=== PATIENT | female | born 2000 | race Hispanic/Latino ===

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

== ENCOUNTER 2024-02-03 07:12 | Emergency (ER) | payer BC, MEDICAID ==
[~2024-02-03] VITALS: Ht 149.9 cm; Wt 99.8 kg
--- NOTE | 2024-02-03 07:43 | ERN ---
General Chief Complaint: Headache Stated Complaint: HEADACHE Time Seen by MD: 07:20 History of Present Illness Initial Comments 23-year-old female, otherwise healthy, presents for cough, congestion, body aches, and vomiting. About four days ago patient had fevers body aches vomiting. She has developed a cough. Fevers have subsided but she continues with nausea. She reports decreased oral intake. She has been taking [id number] cough and congestion medicines. No abdominal pain. No diarrhea. Medical history: Denies Surgical history: Cholecystectomy Allergies: Coded Allergies: No Known Drug Allergies (Unverified Allergy, Unknown, 02/03/24) Past Medical History Past Medical History: No Pertinent History Past Surgical History: Cholecystectomy Female( History) LMP: Jan 26, 2024 : 0 ROS Dictation CONSTITUTIONAL: Weakness HEAD/FACE: No signs of trauma. EENT: No eye pain, no blurred vision, no tearing, no double vision, no ear pain, no ear discharge, no nose pain, no nasal congestion, no throat pain, no throat swelling, no mouth pain. RESPIRATORY: Cough CARDIOVASCULAR: No chest pain, no edema, no palpitations, no syncope. GASTROINTESTINAL/ABDOMINAL: Nausea GENITOURINARY: No abnormal discharge, no dysuria, no frequent urination, no hematuria. No complaints of pain in the genitals. MUSCULOSKELETAL: No back pain, no gout, no joint pain, no joint swelling, no muscle pain, no muscle stiffness, no neck pain. INTEGUMENTARY: No change in color, no change in hair/nails, no dryness, no lesion, no lumps, no rash. NEUROLOGICAL/PSYCH: No anxiety, not depressed, no emotional problem, no headache, no numbness, no pre-existing deficit, no history of seizures, no tremors, no weakness. HEMATOLOGIC/LYMPHATIC: Not anemic, no history of blood clots, no apparent bleeding, no bruising, glands not swollen. All Systems Negative, Except as Noted. Physical Exam Physical Exam Dictation VITAL SIGNS: Reviewed. GENERAL APPEARANCE: Alert, oriented x3, no acute distress, obese. HEAD AND FACE: Non-traumatic. EYES: PERRL, pink conjunctivas, eyelid no trauma, anterior chamber clear. EARS: Pinnas intact and no signs of trauma or erythema. Ear canals clear and no discharge. TMs no erythema. NOSE: No discharge, no bleeding. OROPHARYNX: Mouth normal, teeth no caries, tongue pink. Pharynx clear, no erythema. Tonsils no exudates, no abscesses noted. Mucous membrane moist. NECK: Supple, non-tender, no thyromegaly, no masses, no JVD, no bruits. BREAST: Deferred. CHEST: No tenderness, no crepitus, no paradoxical movement, no retractions. LUNGS: Clear, well-ventilated, symmetric, no rales, no wheezing, no rhonchi, no stridor, good breath sounds bilaterally. HEART: Regular rate, regular rhythm, no murmur, no gallops. VASCULAR: No peripheral edema. ABDOMEN: Soft, positive bowel sounds, nondistended, no guarding, nontender, no rebound, no masses no hepatomegaly, no splenomegaly, no Singh's sign, no hernias. RECTAL: Deferred. GENITAL: Deferred. NEUROLOGICAL: Normal speech, gross motor function intact, gross sensory function intact. MUSCULOSKELETAL: Neck nontender, full range of motion, back nontender, full range of motion. EXTREMITIES: Nontender, full range of motion. SKIN: Color pink, dry, no turgor, no rash, no lacerations, no abrasions, no contusions. LYMPHATICS: Deferred. Results Laboratory and Microbiology Lab and Micro Result Laboratory Tests Test 02/03/24 07:20 Influenza Type A Antigen Positive For Type A Influenza Type B Antigen Negative For Type B SARS-CoV-2, RNA, NAAT NEGATIVE SARS CoV-2 MDM CC: Flu-like symptoms for four days Historian: Patient Comorbidities: Obesity Limitations by social determinants of health: None Vital signs: Pulse 109 otherwise unremarkable Differential diagnosis: Flu-like illness, viral URI, other CXR: Per my independent interpretation no cardiomegaly no pleural effusions or focal infiltrates. Flu positive. Consistent with symptoms. She received p.o. Zofran here in the ER. She was able to drink liquids. Low suspicion for any life threats. No respiratory distress. Able to keep liquids down. We will DC with Tamiflu prescription and Zofran prescription. Patient agrees with the plan. ED Course Orders Procedure Category Date Status Time Influenza Type A & B, LAB 02/03/24 Complete Rapid 07:19 Covid Rna Naat LAB 02/03/24 Complete 07:19 Chest 1vw RAD 02/03/24 Taken 07:20 Ondansetron Odt 4mg PHA 02/03/24 Complete Tab (Zofran 4mg Odt) 08:00 Current Medications Medications (Trade) Dose Ordered Sig/Adolph Route PRN Reason Start Time Stop Time Status Last Admin Dose Admin Ondansetron HCl (zoFRAN 4MG ODT) 4 mg ONCE ONCE SL 02/03/24 08:00 02/03/24 08:01 DC 02/03/24 07:53 Vital Signs Date Time Temp Pulse Resp B/P (MAP) Pulse Ox O2 Delivery O2 Flow Rate FiO2 02/03/24 07:13 97.7 109 16 142/79 96 Room Air 0 DX & DISP Disposition: Discharge Departure Impression: Primary Impression: Influenza A Condition: Stable Scripts Ondansetron (Ondansetron Odt) 4 Mg Tab.rapdis 1 TAB PO Q6HPRN PRN for nausea/vomiting for 3 Days, #9 TAB 0 Refills Prov: DEYSI RHOADES DO 02/03/24 Oseltamivir Phosphate (Tamiflu) 75 Mg Cap 1 CAP PO BID for 5 Days, #10 CAP 0 Refills Prov: DEYSI RHOADES DO 02/03/24 Additional Instructions: You tested positive for influenza a, or the flu. Your chest x-ray is clear. As we discussed, I have prescribed Tamiflu, which is an antiviral medication for the flu. Take as prescribed. If you have any side effects from this me dication, you do not need to complete the entire course. As we discussed, this medication is less effective later in the course of the disease. Continue with Tylenol and ibuprofen for fevers and body aches. I have prescribed ondansetron dissolvable tabs. If you take this 3 times a day will prevent significant vomiting. Be sure to drink plenty of liquids. Gatorade has a good choice. Start with the BRAT diet (bananas, rice, applesauce, toast). Advance your diet slowly as tolerated. Please return to the emergency department if you have any concerns. Otherwise you can follow up with her primary doctor in 48 hours for re-evaluation. Referrals: SURENDRA GEORGE MD (PCP) DEYSI RHOADES DO Feb 03, 2024 07:43
[2024-02-03] MEDS: ondanSETRON ODT 4MG TAB SL ONE (07:53)
[2024-02-03 07:56] LABS: INFLUENZA TYPE B Negative For Type B (NEGATIVE); SARS-CoV-2, RNA, NAAT NEGATIVE SARS CoV-2 (NEGATIVE)
[2024-02-03 08:03] LABS: INFLUENZA TYPE A Positive For Type A (NEGATIVE)
[2024-02-03] MEDS ORDERED: OSEL75 PO (08:10)
[2024-02-03] MEDS ORDERED: ONDA-243 PO (08:10)
[2024-02-03 08:38] VITALS: BP 130/75; PULSE 98; RESP 16; TEMP 97.8; O2SAT 97
--- NOTE | 2024-02-03 08:42 | HMCIMG ---
CHEST 1VW HISTORY: Cough COMPARISON: 02/06/2015 FINDINGS: A frontal projection of the chest was obtained. No acute pulmonary infiltrates is seen. The heart is normal in size. Prominent interstitial markings are seen. IMPRESSION: 1. No acute pulmonary infiltrate is seen.
== END 2024-02-03 08:47 | disposition home or self-care (01) ==
LOC: EDH 07:12
DX: J10.1 Influenza due to other identified influenza virus with other respiratory manifestations (principal); E66.9 Obesity, unspecified; Z90.49 Acquired absence of other specified parts of digestive tract; Z20.822 Contact with and (suspected) exposure to COVID-19
CPT/HCPCS: 71045; 87635; 87804; 99283

== ENCOUNTER 2024-10-16 14:21 | Emergency (ER) | payer BC, MEDICAID ==
[~2024-10-16] VITALS: Ht 149.9 cm; Wt 115.7 kg
[~2024-10-16 14:21] MED LIST: ONDA-243 PO; OSEL75 PO
--- NOTE | 2024-10-16 14:33 | ERN ---
ED Note History of Present Illness Stated Complaint: 13 WKS PREG, ABD PAIN Chief Complaint: Abdominal Pain in Time Seen by MD: 14:21 Dictation: PATIENT IS A 24-YEAR-OLD FEMALE COMING IN TODAY WITH PELVIC PAIN CRAMPING ONSET FOR THE LAST SEVERAL DAYS. SHE DENIES VAGINAL BLEEDING. STATES SHE IS APPROXIMATELY 13 WEEKS , . PATIENT STATES HER OUTER DIAMETER GRINDER DOCTOR WE WILL BE DR. COSBY SHE HAS NOT HAD AN APPOINTMENT WITH HIM YET. Allergies: Coded Allergies: No Known Drug Allergies (Unverified Allergy, Unknown, 02/03/24) Home Meds Active Scripts Ondansetron (Ondansetron Odt) 4 Mg Tab.rapdis, 1 TAB PO Q6HPRN PRN for nausea/vomiting for 3 Days, #9 TAB 0 Refills Prov:DEYSI RHOADES DO 02/03/24 Oseltamivir Phosphate (Tamiflu) 75 Mg Cap, 1 CAP PO BID for 5 Days, #10 CAP 0 Refills Prov:DEYSI RHOADES DO 02/03/24 Past Medical History Past Medical History: No Pertinent History Surgical History: Cholecystectomy : 1 Para: 0 Aborts: 0 RN Note Reviewed/Agreed w/PFSH: Yes Review of System Dictation CONSTITUTIONAL: NEGATIVE EXCEPT FOR HPI HEAD/FACE: NEGATIVE EXCEPT FOR HPI EENT: NEGATIVE EXCEPT FOR HPI RESPIRATORY: NEGATIVE EXCEPT FOR HPI GASTROINTESTINAL/ABDOMINAL: NEGATIVE EXCEPT FOR HPI PELVIC CRAMPING GENITOURINARY: NEGATIVE EXCEPT FOR HPI MUSCULOSKELETAL: NEGATIVE EXCEPT FOR HPI INTEGUMENTARY: NEGATIVE EXCEPT FOR HPI NEUROLOGICAL/PSYCH: NEGATIVE EXCEPT FOR HPI HEMATOLOGIC/LYMPHATIC: NEGATIVE EXCEPT FOR HPI ALL SYSTEMS NEGATIVE, EXCEPT NOTED ABOVE. 13 POINT REVIEW OF SYSTEMS ASSESSED AND ALL NEGATIVE EXCEPT FOR ABOVE. Initial Vital Sign VS Vital Signs Date Time Temp Pulse Resp B/P (MAP) Pulse Ox O2 Delivery O2 Flow Rate FiO2 10/16/24 14:30 98.8 87 20 120/71 100 Room Air 0 10/16/24 14:33 21 Physical Exam Dictation VITAL SIGNS REVIEWED GENERAL APPEARANCE: ALERT, ORIENTED X 3, NO ACUTE DISTRESS, WELL DEVELOPED, NOURISHED. HEAD AND FACE: NON-TRAUMATIC. EYES: PERRL, PINK CONJUNCTIVAS, EYELID NO TRAUMA, ANTERIOR CHAMBER WITH ARCUS SENILIS. EARS: PINNAS INTACT AND NO SIGNS OF TRAUMA OR ERYTHEMA EAR CANALS CLEAR AND NO DISCHARGE TM NO ERYTHEMA NOSE: NO DISCHARGE, NO BLEEDING. OROPHARYNX: MOUTH NORMAL, TONGUE PINK, PHARYNX CLEAR,NO ERYTHEMA, TONSILS NO EXUDATES, NO ABSCESSES NOTED, MUCOUS MEMBRANE MOIST NECK: SUPPLE, NON-TENDER, NO THYROMEGALY, NO MASSES, NO JVD, NO BRUITS BREAST:DEFERRED CHEST:NO TENDERNESS, NO CREPITUS, NO PARADOXICAL MOVEMENT, NO RETRACTIONS LUNGS:CLEAR, WELL-VENTILATED, SYMMETRIC, NO RALES, NO WHEEZING, NO RHONCHI, NO STRIDOR, GOOD BREATH SOUNDS BILATERALLY HEART: REGULAR RATE, REGULAR RHYTHM, NO MURMUR, NO GALLOPS VASCULAR: NO PERIPHERAL EDEMA, ABDOMEN: SOFT, POSITIVE BOWEL SOUNDS, NONDISTENDED, NO GUARDING, NONTENDER, NO REBOUND, NO MASSES NO HEPATOMEGALY, NO SPLENOMEGALY, NO RICHARDS'S SIGN, NO HERNIAS. RECTAL: DEFERRED GENITAL: DEFERRED NEUROLOGICAL: NORMAL SPEECH, MOTOR FUNCTION INTACT, SENSORY FUNCTION INTACT MUSCULOSKELETAL: NECK NONTENDER, FULL RANGE OF MOTION, BACK NONTENDER, FULL RANGE OF MOTION, EXTREMITIES: NONTENDER, FULL RANGE OF MOTION SKIN: COLOR PINK, DRY, NO TURGOR, NO RASH, NO LACERATIONS, NO ABRASIONS, NO CONTUSIONS. LYMPHATIC: DEFERRED Results (Laboratory/Radiology) Laboratory/Radiology Laboratory Tests Test 10/16/24 15:50 White Blood Count 8.6 K/uL (4.8-10.8) Red Blood Count 4.09 MIL/uL (4.00-5.50) Hemoglobin 12.5 g/dL (12.0-16.0) Hematocrit 36.0 % (36-48) Mean Corpuscular Volume 88.0 fL (79-99) Mean Corpuscular Hemoglobin 30.6 pg (27.0-33.0) Mean Corpuscular Hemoglobin Concent 34.7 g/dL (32.0-36.0) Red Cell Distribution Width 13.2 % (11.0-15.5) Platelet Count 242 K/uL (130-400) Mean Platelet Volume 11.7 fL (7.5-10.5) H Immature Granulocyte % (Auto) 0.3 % (0-1) Neutrophils (%) (Auto) 62.6 % (40.0-77.0) Lymphocytes (%) (Auto) 30.3 % (21.0-51.0) Monocytes (%) (Auto) 6.0 % (3.0-13.0) Eosinophils (%) (Auto) 0.6 % (0.0-8.0) Basophils (%) (Auto) 0.2 % (0.0-5.0) Neutrophils # (Auto) 5.4 K/uL (1.8-7.7) Lymphocytes # (Auto) 2.6 K/uL (1.0-4.8) Monocytes # (Auto) 0.5 K/uL (0.1-1.0) Eosinophils # (Auto) 0.05 K/uL (0.00-0.70) Basophils # (Auto) 0.02 K/uL (0.00-0.20) Absolute Immature Granulocyte (auto 0.03 K/uL (0-1) Nucleated Red Blood Cells 0.0 % (0.0-0.19) Sodium Level 136 mmol/L (136-145) Potassium Level 4.0 mmol/L (3.5-5.1) Chloride Level 103 mmol/L (101-111) Carbon Dioxide Level 27 mmol/L (21-32) Blood Urea Nitrogen 5 mg/dL (7-18) L Creatinine 0.4 mg/dL (0.5-1.0) L Glomerular Filtration Rate Calc 143 mL/min (>90) Random Glucose 82 mg/dL (70-105) Total Calcium 8.9 mg/dL (8.5-10.1) Human Chorionic Gonadotropin, Quant 18186 mIU/mL (0-5) H ULTRASOUND DEMONSTRATES VIABLE IUP 13W0D HEART TONES 150 NO BLEEDING Labs Reviewed?: Yes ED Course ED Course Orders Procedure Category Date Status Time Cbc With Differential LAB 10/16/24 Complete 14:29 Hcg,Quantitative LAB 10/16/24 Complete 14:29 Us Ob <14 Weeks US 10/16/24 Taken 14:29 Type And Screen BBK 10/16/24 Complete 14:29 Basic Metabolic Panel LAB 10/16/24 Complete 14:29 Vital Signs Date Time Temp Pulse Resp B/P (MAP) Pulse Ox O2 Delivery O2 Flow Rate FiO2 10/16/24 17:15 98.8 80 20 115/72 100 Room Air* 0 21 10/16/24 15:57 98.8 85 20 118/73 100 Room Air* 0 21 10/16/24 14:33 98.8 87 20 120/71 100 Room Air* 0 21 10/16/24 14:30 98.8 87 20 120/71 100 Room Air 0 1705/PATIENT DISCHARGED HOME WITH IUP/3 WEEKS 0 DAYS TOLD TO CONTINUE VITAMINS, TYLENOL ONLY FOR PAIN AND KEEP HER APPOINTMENT WITH HER OUTER DIAMETER GRINDER DOCTOR. Medical Decision Making MDM MEDICAL DISCHARGE MAKING BASED ON BASIC LABS FOR INCLUDING ULTRASOUND. PATIENT 13 WEEKS 0 DAYS VIABLE IUP LABS UNREMARKABLE OTHER THAN DEHYDRATION PATIENT TOLD TO CONTINUE HER MEDICATIONS AND TYLENOL ONLY FOR PAIN KEEP HER APPOINTMENT WITH HER OUTER DIAMETER GRINDER DOCTOR DX & DISP Disposition: Discharge Departure Impression: Primary Impression: Pelvic pain during Additional Impression: Dehydration Condition: Stable Additional Instructions: FOLLOW-UP WITH PRIMARY CARE PROVIDER IN 1 TO 2 DAYS. TAKE MEDICATIONS DIRECTED HERE IN THE EMERGENCY ROOM. OKAY TO CONTINUE HOME MEDICATIONS UNLESS OTHERWISE DISCUSSED DURING YOUR VISIT IN THE EMERGENCY ROOM TODAY. RETURN TO YOUR NEAREST EMERGENCY ROOM IF SYMPTOMS WORSEN OR IF THERE IS NO IMPROVEMENT. CALL 911 IF YOU NEED IMMEDIATE ASSISTANCE. TAKE TYLENOL [id number] NEEDED AND IF NO CONTRAINDICATIONS ARE PRESENT. INCREASE ORAL HYDRATION. A WOUND CULTURE OR URINE CULTURE WAS ORDERED HERE IN THE EMERGENCY ROOM DEPARTMENT PLEASE FOLLOW-UP WITH PRIMARY CARE PROVIDER AND ADVISE THEM TO GET REPEAT PORTS FROM OUR FACILITY. IF YOU HAD ANY JUAN PABLO WRAP/SPLINTS THAT WERE APPLIED HERE, PLEASE DO NOT REMOVE THEM UNTIL YOU SEE YOUR PRIMARY CARE OR SPECIALTY. CONTINUE VITAMINS. TYLENOL ONLY FOR PAIN AND KEEP YOUR APPOINTMENT WITH YOUR OUTER DIAMETER GRINDER DOCTOR. Referrals: GUERDA ESQUIVEL MD (PCP) Time of Disposition: 17:09 I have reviewed the case, and I agree with, Diagnosis and Plan KETTY RIVERA NP Oct 16, 2024 14:33 DEYSI RHOADES DO Oct 16, 2024 17:56
[2024-10-16 16:04] LABS: IMMATURE GRANULOCYTE ABSOLUTE 0.03 K/uL (0-1); NUCLEATED RED BLOOD CELLS 0.0 % (0.0-0.19); PLATELET COUNT (AUTO) 242 K/uL (130-400); RED BLOOD CELL COUNT(AUTO) 4.09 MIL/uL (4.00-5.50); RED CELL DISTRIBUTION WIDTH 13.2 % (11.0-15.5); WHITE BLOOD COUNT (AUTO) 8.6 K/uL (4.8-10.8)
[2024-10-16 16:15] LABS: CREATININE 0.4 mg/dL (0.5-1.0); GLOMERULAR FILTR. RATE CALC 143.0 mL/min (>90); GLUCOSE,RANDOM 82.0 mg/dL (70-105); SODIUM SERUM 136.0 mmol/L (136-145); UREA NITROGEN, BLOOD 5.0 mg/dL (7-18)
[2024-10-16 16:42] LABS: HCG,QUANTITATIVE 34796.0 mIU/mL (0-5)
[2024-10-16 17:15] VITALS: BP 115/72; PULSE 80; RESP 20; TEMP 98.8; O2SAT 100
--- NOTE | 2024-10-17 13:01 | HMCIMG ---
TRANSABDOMINAL AND TRANSVAGINAL PELVIC ULTRASOUND; DATED 10/17/2024 11:55 AM MDT. CLINICAL INDICATION : PELVIC CRAMPING,13 WEEKS NO CARE COMPARISON: No recent ultrasound prior ultrasound was done 08/17/2017 FINDINGS: Single live intrauterine gestation in the fundal endometrium. No perigestational sac hematoma identified. Mean gestational sac diameter is 6.2 cm , corresponds to out of range. CRL measures 6.8 cm , corresponds to 13 weeks 0 days. Estimated gestational age is 13 weeks 0 day and LAUREN is 04/23/2025. cardiac activity and heart rate is 150 beats per minute. The uterus is anteverted with normal shape. It measures 11.7 x 7.0 x 9.0 cm in its maximum length, anteroposterior and transverse dimensions. The myometrium is homogeneous and there is no evidence of focal or diffuse lesions. The cervix is closed. Both ovaries appear normal with normal flow on color and Spectral Doppler. The right ovary measures 2.7 x 1.4 x 3.9 cm and the left ovary is not visualized. There is a right ovarian cyst measuring 2.2 x 1.6 x 1.3. No adnexal masses. No free fluid or collections. Urinary bladder appears normal. IMPRESSION: 1. Single live intrauterine gestation 13 weeks 0 day and LAUREN is 04/23/2025 . 2. Cervix is closed. I have reviewed the images and agree with the findings and conclusions reported above.
== END 2024-10-16 17:17 | disposition home or self-care (01) ==
LOC: EDH 14:21
DX: O26.891 Other specified pregnancy related conditions, first trimester (principal); R10.2 Pelvic and perineal pain; O99.281 Endocrine, nutritional and metabolic diseases complicating pregnancy, first trimester; E86.0 Dehydration; Z90.49 Acquired absence of other specified parts of digestive tract; Z3A.13 13 weeks gestation of pregnancy
CPT/HCPCS: 36415; 76801; 80048; 84702; 85025; 86850; 86900; 86901; 99284

== ENCOUNTER 2024-11-15 22:23 | Emergency (ER) | payer BC, MEDICAID ==
[~2024-11-15] VITALS: Ht 149.9 cm; Wt 117.9 kg
--- NOTE | 2024-11-15 22:27 | NUR ---
UA CUP PROVIDED
[2024-11-15 22:34] VITALS: BP 120/72; PULSE 94; RESP 16; TEMP 98; O2SAT 99
[2024-11-15 22:42] LABS: APPEARANCE,URINE TURBID (CLEAR); GLUCOSE, URINE (UA) NEGATIVE (NEGATIVE); LEUKOCYTE ESTERASE ,URINE 75 Leu/uL (NEGATIVE); NITRATE,URINE NEGATIVE (NEGATIVE); OCCULT BLOOD,URINE NEGATIVE (NEGATIVE)
[2024-11-15 22:45] LABS: ADD UA MICROSCOPIC YES
--- NOTE | 2024-11-15 22:47 | ERN ---
ED Note History of Present Illness Stated Complaint: FALL, OB, ABD CRAMPING Chief Complaint: OB<20 weeks gest. Time Seen by MD: 22:33 Time Seen by Midlevel: 22:33 Dictation: The patient is a 24-year-old female with a history of gastritis, cholecystectomy who reports being 17 weeks G1 who presents to the emergency department with generalized abdominal cramping onset 40 minutes ago after she had an accidental trip and fall. Patient reports she landed on her knees and did not injured her stomach. Denies any other injuries. Patient denies any vaginal bleeding or discharge. Allergies: Coded Allergies: No Known Drug Allergies (Unverified Allergy, Unknown, 02/03/24) Home Meds Active Scripts Cephalexin Monohydrate (Keflex) 500 Mg Cap, 500 MG PO QID for 5 Days, #20 CAP Prov:MARLIN VERA CARDIOTHORACIC ICU RN 11/15/24 Ondansetron (Ondansetron Odt) 4 Mg Tab.rapdis, 1 TAB PO Q6HPRN PRN for nausea/vomiting for 3 Days, #9 TAB 0 Refills Prov:DEYSI RHOADES DO 02/03/24 Oseltamivir Phosphate (Tamiflu) 75 Mg Cap, 1 CAP PO BID for 5 Days, #10 CAP 0 Refills Prov:DEYSI RHOADES DO 02/03/24 Past Medical History Past Medical History: Other Additional Past Medical Hx: gastritis Surgical History: Cholecystectomy : 1 Para: 0 Aborts: 0 RN Note Reviewed/Agreed w/PFSH: Yes Review of System Dictation Constitutional: Negative for fever,chills, and weight loss Eyes: Negative for injury, pain,redness, and discharge ENT: Negative for injury,pain or swelling Cardiovascular: Negative for chest pain, palpitations, and edema Respiratory: Negative for shortness of breath, cough, and wheezing, Abdomen/GI: Negative for nausea, vomiting, diarrhea, and constipation positive for abdominal pain Back: Negative for injury and pain : Negative for injury, bleeding and discharge MS/Extremity: Negative for injury and deformity Skin: Negative for rash, and discoloration Neuro: Negative for headache, weakness, numbness, tingling, and seizure Psych: Negative for suicide ideation, homicidal ideation, and hallucinations Initial Vital Sign VS Vital Signs Date Time Temp Pulse Resp B/P (MAP) Pulse Ox O2 Delivery O2 Flow Rate FiO2 11/15/24 22:24 98.1 96 20 118/73 99 Room Air 11/15/24 22:34 0 21 Physical Exam Dictation Vital Signs reviewed General Appearance: Alert, oriented x 3, no acute distress, well developed, nour ished. Head and Face: non-traumatic. Eyes: PERRL, pink conjunctivas, eyelid no trauma, anterior chamber with arcus senilis. Ears: Pinnas intact and no signs of trauma or erythema ear canals clear and no discharge TM no erythema Nose: No discharge, no bleeding. Oropharynx: Mouth normal, tongue pink. pharynx clear,no erythema, tonsils no exudates, no abscesses noted, mucous memb blanka moist Neck: Supple, non-tender, no thyromegaly, no masses, no JVD, no bruits Breast:Deferred Chest:No tenderness, no crepitus, no paradoxical movement, no retractions Lungs:Clear, well-ventilated, symmetric, no rales, no wheezing, no rhonchi, no s tridor, good breath sounds bilaterally Heart: Regular rate, regular rhythm, no murmur, no gallops Vascular: no peripheral edema, Abdomen: Soft, positive bowel sounds, nondistended, no guarding, nontender, no rebound, no masses no hepatomegaly, no splenomegaly, no Singh's sign, no hernias. Rectal: Deferred Genital: Deferred Neurological: Normal speech, motor function intact, sensory function intact Musculoskeletal: Neck nontender, full range of motion, back nontender, full range of motion, Extremities: nontender, full range of motion no contusions noted to knee, ambulatory Skin: Color pink, dry, no turgor, no rash, no lacerations, no abrasions, no contusions. Lymphatic: Deferred Results (Laboratory/Radiology) Laboratory/Radiology Laboratory Tests Test 11/15/24 22:31 11/15/24 22:39 Urine Color YELLOW (YELLOW) Urine Appearance TURBID (CLEAR) Urine pH 8.0 (5.0-8.0) Urine Specific [place] 1.020 (1.001-1.031) Urine Protein NEGATIVE mg/dL (NEGATIVE) Urine Glucose (UA) NEGATIVE mg/dL (NEGATIVE) Urine Ketones NEGATIVE mg/dL (NEGATIVE) Urine Occult Blood NEGATIVE (NEGATIVE) Urine Nitrate NEGATIVE (NEGATIVE) Urine Bilirubin NEGATIVE mg/dL (NEGATIVE) Urine Urobilinogen 2.0 mg/dL (0.2-1.0) H Urine Leukocyte Esterase 75 Luci/uL (NEGATIVE) H Urine RBC 2-5 /HPF (0-1) H Urine WBC 2-5 /HPF (0-1) H Urine Squamous Epithelial Cells FEW /HPF (0-2) Urine Amorphous Crystals (Auto) RARE /LPF (None Seen) Urine Bacteria RARE /HPF (None Seen) Human Chorionic Gonadotropin, Quant 8095 mIU/mL (0-5) H REASON: FALL TO KNEES, GENERALIZED ABD CRAPING. DENIES VAGINAL BLEEDING ORDERING PHYSICIAN: LUCY HI MD PROCEDURE: OB >14 - US OB >14 WEEKS EXAM: US Obstetrical, Complete >14 weeks. CLINICAL HISTORY: Fall to knees, generalized abdominal cramping. Denies vaginal bleeding. TECHNIQUE: Transabdominal imaging of the maternal pelvis and a > 14-week gestation with image documentation. COMPARISON: None provided. FINDINGS: FETUS: Single living intrauterine gestation. POSITION: Breech, longitudinal lie. HEART RATE: 162 bpm. BIOMETRICS: BPD: 3.94 cm - 18 w 0 d HC: 14.78 cm - 17 w 6 d AC: 11.91 cm - 17 w 5 d FL: 2.69 cm - 18 w 1 d Composite GA (by US): 17 w 6 d Estimated Weight (EFW): 213 g ??? 31 g HC/AC Ratio: 1.24 (within normal range) ANATOMIC SURVEY: Visualized anatomy (lateral ventricles, choroid plexus, cisterna magna, stomach, kidneys, urinary bladder, spine, cord insertion, 3-vessel cord, 4-chamber heart) is unremarkable. PLACENTA: Anterior. No previa or abruption. Placental tip to cervix: 2.0 cm. AMNIOTIC FLUID: VANESSA: 14.72 cm - within normal limits. CERVIX: Closed. Unremarkable. IMPRESSION: Single viable intrauterine , 17 w 6 d by ultrasound. Growth and anatomy are appropriate for gestational age. No acute abnormality. Anterior placenta, the lower margin of the placenta is 2 cm from the internal os. Labs Reviewed?: Yes ED Course ED Course Orders Procedure Category Date Status Time Urinalysis Profile LAB 11/15/24 Complete 22:27 Hcg,Quantitative LAB 11/15/24 Complete 22:27 Us Ob >14 Weeks US 11/15/24 Resulted 22:29 Acetaminophen 325 Tab PHA 8/22/25 Complete (Tylenol 325mg Tab 23:00 Culture Urine LUZ ELENA 11/15/24 In Process 22:45 Ceftriaxone 1g Vial PHA 11/15/24 Complete (Rocephine 1g Inj) 23:30 Current Medications Medications (Trade) Dose Ordered Sig/Adolph Route PRN Reason Start Time Stop Time Status Last Admin Dose Admin Acetaminophen (TYLenol 325MG TAB) 650 mg ONCE ONCE PO 11/15/24 23:00 11/15/24 23:01 DC 11/15/24 23:29 Ceftriaxone Sodium (ROCEphine 1G INJ) 1 gm ONCE ONCE IM 11/15/24 23:30 11/15/24 23:31 DC 11/15/24 23:29 Vital Signs Date Time Temp Pulse Resp B/P (MAP) Pulse Ox O2 Delivery O2 Flow Rate FiO2 11/15/24 22:34 98.1 94 16 120/72 99 Room Air* 0 21 11/15/24 22:24 98.1 96 20 118/73 99 Room Air Medical Decision Making MDM The patient is a 24-year-old female with a history of gastritis, cholecystectomy who reports being 17 weeks G1 who presents to the emergency department with generalized abdominal cramping onset 40 minutes ago after she had an accidental trip and fall. Patient reports she landed on her knees and did not injured her stomach. Denies any other injuries. Patient denies any vaginal bleeding or discharge. Urinalysis positive for leukocyte esterase. Patient will be treated for UTI. Ultrasound revealed an intrauterine of 17 weeks with heart rate of 160. Patient with no vaginal bleeding or discharge. On physical exam patient is in no acute distress, ambulatory, nontoxic appearance. No contusions or open wounds to knee, no deformities, neurovascularly intact. Patient will be discharged to follow up with the OBGYN. Differential diagnosis: Threatened , UTI, abdominal trauma Need for hospitalization: Patient does not meet criteria for hospitalization. There are no social concerns with this patient. DX & DISP Disposition: Discharge Departure Impression: Primary Impression: 17 weeks gestation of Additional Impression: UTI (urinary tract infection) Condition: Stable Scripts Cephalexin Monohydrate (Keflex) 500 Mg Cap 500 MG PO QID for 5 Days, #20 CAP Prov: MARLIN VERA CARDIOTHORACIC ICU RN 11/15/24 Additional Instructions: Please follow up with your OBGYN as soon as possible. Take your medications as prescribed. Your urinalysis showed you have a urinary tract infection which she will be giving antibiotics. If anything worsens please return to ER. FOLLOW-UP WITH PRIMARY CARE PROVIDER IN 1 TO 2 DAYS. TAKE MEDICATIONS DIRECTED HERE IN THE EMERGENCY ROOM. OKAY TO CONTINUE HOME MEDICATIONS UNLESS OTHERWISE DISCUSSED DURING YOUR VISIT IN THE EMERGENCY ROOM TODAY. RETURN TO YOUR NEAREST EMERGENCY ROOM IF SYMPTOMS WORSEN OR IF THERE IS NO IMPROVEMENT. CALL 911 IF YOU NEED IMMEDIATE ASSISTANCE. TAKE TYLENOL [id number] NEEDED AND IF NO CONTRAINDICATIONS ARE PRESENT. INCREASE ORAL HYDRATION. A WOUND CULTURE OR URINE CULTURE WAS ORDERED HERE IN THE EMERGENCY ROOM DEPARTMENT PLEASE FOLLOW-UP WITH PRIMARY CARE PROVIDER AND ADVISE THEM TO GET REPEAT PORTS FROM OUR FACILITY. IF YOU HAD ANY JUAN PABLO WRAP/SPLINTS THAT WERE APPLIED HERE, PLEASE DO NOT REMOVE THEM UNTIL YOU SEE YOUR PRIMARY CARE OR SPECIALTY. Referrals: GUERDA ESQUIVEL MD (PCP) Time of Disposition: 23:50 I have reviewed the case, and I agree with, Diagnosis and Plan MARLIN VERA [facility] Nov 15, 2024 22:47
[2024-11-15 22:48] LABS: SQUAMOUS EPITHELIAL CELL,UR FEW /HPF (0-2)
--- NOTE | 2024-11-15 23:10 | NUR ---
fht 160 per us
[2024-11-15] MEDS ORDERED: CEPH500B PO (23:51)
--- NOTE | 2024-11-16 00:23 | HMCIMG ---
EXAM: US Obstetrical, Complete >14 weeks. CLINICAL HISTORY: Fall to knees, generalized abdominal cramping. Denies vaginal bleeding. TECHNIQUE: Transabdominal imaging of the maternal pelvis and a > 14-week gestation with image documentation. COMPARISON: None provided. FINDINGS: FETUS: Single living intrauterine gestation. POSITION: Breech, longitudinal lie. HEART RATE: 162 bpm. BIOMETRICS: BPD: 3.94 cm - 18 w 0 d HC: 14.78 cm - 17 w 6 d AC: 11.91 cm - 17 w 5 d FL: 2.69 cm - 18 w 1 d Composite GA (by US): 17 w 6 d Estimated Weight (EFW): 213 g ??? 31 g HC/AC Ratio: 1.24 (within normal range) ANATOMIC SURVEY: Visualized anatomy (lateral ventricles, choroid plexus, cisterna magna, stomach, kidneys, urinary bladder, spine, cord insertion, 3-vessel cord, 4-chamber heart) is unremarkable. PLACENTA: Anterior. No previa or abruption. Placental tip to cervix: 2.0 cm. AMNIOTIC FLUID: VANESSA: 14.72 cm - within normal limits. CERVIX: Closed. Unremarkable. IMPRESSION: Single viable intrauterine , 17 w 6 d by ultrasound. Growth and anatomy are appropriate for gestational age. No acute abnormality. Anterior placenta, the lower margin of the placenta is 2 cm from the internal os. /[place]
== END 2024-11-16 00:02 | disposition home or self-care (01) ==
LOC: EDH 22:23
DX: O23.42 Unspecified infection of urinary tract in pregnancy, second trimester (principal); N39.0 Urinary tract infection, site not specified; Z90.49 Acquired absence of other specified parts of digestive tract; Z3A.17 17 weeks gestation of pregnancy
CPT/HCPCS: 99284; 76805; 84702; 87086; 81001; 36415; 96372; J0696

== ENCOUNTER 2025-02-18 09:41 | Emergency (ER) | payer BC, MEDICAID ==
[~2025-02-18] VITALS: Ht 149.9 cm; Wt 122.0 kg
[~2025-02-18 09:41] MED LIST changes: +CEPH500B PO
--- NOTE | 2025-02-18 09:58 | NUR ---
PT JUST NOW BEING PLACED IN ED 9
[2025-02-18 10:13] LABS: NUCLEATED RED BLOOD CELLS 0.0 % (0.0-0.19); PLATELET COUNT (AUTO) 275.0 K/uL (130-400); RED BLOOD CELL COUNT(AUTO) 4.04 MIL/uL (4.00-5.50); RED CELL DISTRIBUTION WIDTH 13.2 % (11.0-15.5); WHITE BLOOD COUNT (AUTO) 7.9 K/uL (4.8-10.8)
[2025-02-18 10:18] LABS: APPEARANCE,URINE CLEAR (CLEAR); GLUCOSE, URINE (UA) NEGATIVE (NEGATIVE); LEUKOCYTE ESTERASE ,URINE NEGATIVE Leu/uL (NEGATIVE); NITRATE,URINE NEGATIVE (NEGATIVE); OCCULT BLOOD,URINE NEGATIVE (NEGATIVE)
[2025-02-18 10:20] LABS: ADD UA MICROSCOPIC NO
--- NOTE | 2025-02-18 10:34 | ERN ---
General Chief Complaint: UTI without Fever Stated Complaint: UTI Time Seen by MD: 09:49 Source: patient History of Present Illness Initial Comments My patient, 24-year-old female, at 31 weeks gestation, presents to emergency with complaint of urinary frequency. Patient states that she has burning sensation at times while urinating. She denies fevers, chills or change in bowel habits. Timing/Duration: 24 hours Severity: mild Allergies: Coded Allergies: No Known Drug Allergies (Unverified Allergy, Unknown, 02/03/24) Home Meds Active Scripts Cephalexin Monohydrate (Keflex) 500 Mg Cap, 500 MG PO QID for 5 Days, #20 CAP Prov:MARLIN VERA INSIGHTS ANALYST 11/15/24 Ondansetron (Ondansetron Odt) 4 Mg Tab.rapdis, 1 TAB PO Q6HPRN PRN for nausea/vomiting for 3 Days, #9 TAB 0 Refills Prov:DEYSI RHOADES DO 02/03/24 Oseltamivir Phosphate (Tamiflu) 75 Mg Cap, 1 CAP PO BID for 5 Days, #10 CAP 0 Refills Prov:DEYSI RHOADES DO 02/03/24 Past Medical History Past Medical History: No Pertinent History Medical History Other: gastritis Past Surgical History: Cholecystectomy Female( History) LMP: Jul 16, 2024 : 1 Para: 0 Aborts: 0 Constitutional: (-) chills, (-) diaphoresis, (-) fever, (-) malaise, (-) weakness, (-) other documentation EENTM: (-) eye pain, (-) blurred vision, (-) tearing, (-) double vision, (-) ear pain, (-) ear discharge, (-) nose pain, (-) nose congestion, (-) throat pain, (-) Throat swelling, (-) mouth pain, (-) tooth pain, (-) mouth swelling, (-) other documentation Respiratory: (-) cough, (-) orthopnea, (-) short of breath, (-) stridor, (-) wheezing, (-) other documentation Cardiovascular: (-) chest pain, (-) edema, (-) palpitations, (-) syncope, (-) dyspnea on exertion, (-) other documentation Gastrointestinal/Abdominal: (-) nausea, (-) vomiting, (-) diarrhea, (-) abdominal pain, (-) abdominal distention, (-) constipation, (-) rectal bleeding, (-) dark stool/melena, (-) other documentation Genitourinary: (+) dysuria, (+) frequency Musculoskeletal: (-) Neck pain, (-) Flank Pain, (-) joint pain, (-) joint swelling, (-) muscle pain, (-) muscle stiffness, (-) gout, (-) other documentation Skin: (-) laceration, (-) contusion, (-) abrasion, (-) abscess, (-) rash, (-) change in color, (-) change in hair, (-) change in nails, (-) diaphoresis, (-) dryness, (-) other documentation Neuro: (-) altered mental status, (-) headache, (-) syncope, (-) paralysis, (-) numbness, (-) seizure, (-) pre-existing deficit, (-) tremors, (-) weakness, (-) dizziness, (-) slurred speech, (-) vertigo, (-) other documentation Physical Exam Physical Exam Dictation VITAL SIGNS: Reviewed. GENERAL APPEARANCE: Alert, oriented x3, no acute distress, obese. HEAD AND FACE: Non-traumatic. EYES: PERRL, pink conjunctivas, eyelid no trauma, anterior chamber clear. EARS: Pinnas intact and no signs of trauma or erythema. Ear canals clear and no discharge. TMs no erythema. NOSE: No discharge, no bleeding. OROPHARYNX: Mouth normal, teeth no caries, tongue pink. Pharynx clear, no erythema. Tonsils no exudates, no abscesses noted. Mucous membrane moist. NECK: Supple, non-tender, no thyromegaly, no masses, no JVD, no bruits. BREAST: Deferred. CHEST: No tenderness, no crepitus, no paradoxical movement, no retractions. LUNGS: Clear, well-ventilated, symmetric, no rales, no wheezing, no rhonchi, no stridor, good breath sounds bilaterally. HEART: Regular rate, regular rhythm, no murmur, no gallops. VASCULAR: No peripheral edema. ABDOMEN: Soft, positive bowel sounds, nondistended, no guarding, nontender, no rebound, no masses no hepatomegaly, no splenomegaly, no Singh's sign, no hernias. RECTAL: Deferred. GENITAL: Vaginal exam chaperoned by nurse, bimanual white discharge suggestive of Angie vaginitis.. NEUROLOGICAL: Normal speech, gross motor function intact, gross sensory function intact. MUSCULOSKELETAL: Neck nontender, full range of motion, back nontender, full range of motion. EXTREMITIES: Nontender, full range of motion. SKIN: Color pink, dry, no turgor, no rash, no lacerations, no abrasions, no contusions. LYMPHATICS: Deferred. General Appearance: (+) no apparent distress Orientation: (+) alert, (+) oriented x 3 Head/Face Trauma: No Ear, Nose, Throat: (+) hearing grossly normal, (+) normal ENT inspection, (+) moist mucous membraine Neck: (+) normal inspection, (+) supple, (+) full range of motion Respiratory: (+) chest non-tender, (+) lungs clear Heart: (+) regular, (+) no gallop Gastrointestinal: (+) soft Back: (+) normal inspection Extremities: (+) normal range of motion, (+) non-tender, (+) normal inspection Neurologic/Psychiatric: (+) normal speech, (+) no motor defecits, (+) no sensory deficits, (+) trouble dispatcher II-XII nml as tested Skin: (+) normal color Results Laboratory and Microbiology Lab and Micro Result Laboratory Tests Test 02/18/25 09:59 02/18/25 10:00 Urine Color COLORLESS (YELLOW) Urine Appearance CLEAR (CLEAR) Urine pH 6.0 (5.0-8.0) Urine Specific [place] 1.005 (1.001-1.031) Urine Protein NEGATIVE mg/dL (NEGATIVE) Urine Glucose (UA) NEGATIVE mg/dL (NEGATIVE) Urine Ketones NEGATIVE mg/dL (NEGATIVE) Urine Occult Blood NEGATIVE (NEGATIVE) Urine Nitrate NEGATIVE (NEGATIVE) Urine Bilirubin NEGATIVE mg/dL (NEGATIVE) Urine Urobilinogen 0.2 mg/dL (0.2-1.0) Urine Leukocyte Esterase NEGATIVE Luci/uL White Blood Count 7.9 K/uL (4.8-10.8) Red Blood Count 4.04 MIL/uL (4.00-5.50) Hemoglobin 11.7 g/dL (12.0-16.0) L Hematocrit 35.8 % (36-48) L Mean Corpuscular Volume 88.6 fL (79-99) Mean Corpuscular Hemoglobin 29.0 pg (27.0-33.0) Mean Corpuscular Hemoglobin Concent 32.7 g/dL (32.0-36.0) Red Cell Distribution Width 13.2 % (11.0-15.5) Platelet Count 275 K/uL (130-400) Mean Platelet Volume 11.1 fL (7.5-10.5) H Nucleated Red Blood Cells 0.0 % (0.0-0.19) Sodium Level 135 mmol/L (136-145) L Potassium Level 3.4 mmol/L (3.5-5.1) L Chloride Level 100 mmol/L (101-111) L Carbon Dioxide Level 28 mmol/L (21-32) Blood Urea Nitrogen 7 mg/dL (7-18) Creatinine 0.6 mg/dL (0.5-1.0) Glomerular Filtration Rate Calc 130 mL/min (>90) Random Glucose 87 mg/dL (70-105) Total Calcium 8.3 mg/dL (8.5-10.1) L Labs Reviewed?: Yes MDM MDM: Differential diagnosis: UTI, vaginitis, vaginal discharge, Rationale: Tests considered and ordered secondary to shared decision making include: Previous outside records reviewed: Old ER visits. Risk of complication and/or morbidity or mortality of patient management: None Medications-Per medication reconciliation Need for hospitalization: Patient does not meet criteria for hospitalization. Need for emergency major/minor surgery: No Patient is a 24-year-old female with a recent history of coming in to be evaluated for vaginal discomfort. She states he was involved in a intercourse with a for some that might have had an STD. On physical exam chaperoned with the nurse white discharge suggestive of Angie vaginitis. Patient will be discharged with medication for Angie vaginitis. ED Course Orders Procedure Category Date Status Time Urinalysis Profile LAB 02/18/25 Complete 09:52 Cbc Without LAB 02/18/25 Complete Differential 09:52 Basic Metabolic Panel LAB 02/18/25 Complete 09:52 Chlamydia & Gc Pcr LUZ ELENA 02/18/25 In Process 09:56 Potassium Bicarb/Cit PHA 02/18/25 Complete Ac 25meq (K-Lyte Ta 11:00 Current Medications Medications (Trade) Dose Ordered Sig/Adolph Route PRN Reason Start Time Stop Time Status Last Admin Dose Admin Potassium Bicarbonate (K-Lyte Tablet Eff 25 Meq Tablet.eff) 25 meq ONCE ONCE PO 02/18/25 11:00 02/18/25 11:01 DC 02/18/25 11:50 Vital Signs Date Time Temp Pulse Resp B/P (MAP) Pulse Ox O2 Delivery O2 Flow Rate FiO2 02/18/25 09:49 97.3 96 18 131/67 99 Room Air 0 DX & DISP Disposition: Discharge Departure Impression: Primary Impression: Angie vaginitis Condition: Stable Scripts Miconazole Nitrate (Monistat 7) 2 % Cream.appl 1 JOSE LUIS VG HS for 7 Days, #45 GM 0 Refills Prov: JAVIER STEPHENS MD 02/18/25 Additional Instructions: FOLLOW-UP WITH PRIMARY CARE PROVIDER IN 1 TO 2 DAYS. TAKE MEDICATIONS DIRECTED HERE IN THE EMERGENCY ROOM. OKAY TO CONTINUE HOME MEDICATIONS UNLESS OTHERWISE DISCUSSED DURING YOUR VISIT IN THE EMERGENCY ROOM TODAY. RETURN TO YOUR NEAREST EMERGENCY ROOM IF SYMPTOMS WORSEN OR IF THERE IS NO IMPROVEMENT. CALL 911 IF YOU NEED IMMEDIATE ASSISTANCE. TAKE TYLENOL [id number] NEEDED AND IF NO CONTRAINDICATIONS ARE PRESENT. INCREASE ORAL HYDRATION. A WOUND CULTURE OR URINE CULTURE WAS ORDERED HERE IN THE EMERGENCY ROOM DEPARTMENT PLEASE FOLLOW-UP WITH PRIMARY CARE PROVIDER AND ADVISE THEM TO GET REPORTS FROM OUR FACILITY. IF YOU HAD ANY JUAN PABLO WRAP/SPLINTS THAT WERE APPLIED HERE, PLEASE DO NOT REMOVE THEM UNTIL YOU SEE YOUR PRIMARY CARE OR SPECIALTY. Referrals: Referrals: SELF,REFERRAL (PCP) SUNIL COSBY MD Time of Disposition: 12:50 CHOLO APONTE MD Feb 18, 2025 10:34 JAVIER STEPHENS MD Feb 18, 2025 12:51
[2025-02-18 10:41] LABS: CREATININE 0.6 mg/dL (0.5-1.0); GLOMERULAR FILTR. RATE CALC 130.0 mL/min (>90); GLUCOSE,RANDOM 87.0 mg/dL (70-105); SODIUM SERUM 135.0 mmol/L (136-145); UREA NITROGEN, BLOOD 7.0 mg/dL (7-18)
--- NOTE | 2025-02-18 12:48 | NUR ---
PELVIC EXAM PERFORMED DONE PER DR STEPHENS. MILKY WHITE DISCHARGED NOTED AT VAGINAL ENTRANCE. WITNESS JADON TRAN, [facility] AND DR STEPHENS PERFORMING. DONE IN ED BED 6. PT WAS PLACED IN THE LITHOTOMY POSITION FOR EXAMINATION
[2025-02-18] MEDS ORDERED: MICO45CR77 VG (12:51)
[2025-02-18 13:32] VITALS: BP 118/70; PULSE 88; RESP 16; TEMP 98.1; O2SAT 100
== END 2025-02-18 13:25 | disposition home or self-care (01) ==
LOC: EDH 09:41
DX: O23.593 Infection of other part of genital tract in pregnancy, third trimester (principal); B37.31 Acute candidiasis of vulva and vagina; Z87.19 Personal history of other diseases of the digestive system; Z90.49 Acquired absence of other specified parts of digestive tract; Z3A.31 31 weeks gestation of pregnancy
CPT/HCPCS: 36415; 80048; 81003; 85027; 87491; 87591; 99283